=== PATIENT | male | born 1990 | race Two or more races ===

== ENCOUNTER → 2021-09-04 | Emergency (ER) | payer SELFPAY ==
[~2021-09-04] VITALS: Ht 175.3 cm; Wt 74.8 kg
[~2021-09-04] MED LIST: IBUP800T27 PO
[2021-09-04 13:53] VITALS: BP 145/98
== END | disposition home or self-care (01) ==
LOC: ER 11:10
DX: S20.211A Contusion of right front wall of thorax, initial encounter (principal); F17.290 Nicotine dependence, other tobacco product, uncomplicated; V86.56XA Driver of dirt bike or motor/cross bike injured in nontraffic accident, initial encounter; Y93.89 Activity, other specified; Y92.89 Other specified places as the place of occurrence of the external cause; Y99.8 Other external cause status
CPT/HCPCS: 71045; 71101